=== PATIENT | female | born 1970 | race Caucasian/White ===

== ENCOUNTER 2021-07-05 06:04 | Day surgery (SDC) | payer OTHER ==
[2021-07-03 13:46] LABS: COVID AG,FIA SOURCE NASOPHARYNGEAL
[~2021-07-05] VITALS: Ht 154.9 cm; Wt 88.6 kg
[2021-07-05] MEDS ORDERED: SODIUM CHLORIDE 0.9% 1,000 ML ONE (06:25)
[2021-07-05] MEDS ORDERED: SODIUM CHLORIDE 0.9% 1,000 ML IV ONE (06:30)
[2021-07-05] MEDS ORDERED: FentaNYL CITRATE PF 100 MCG/2 ML VIAL ONE (07:46)
[2021-07-05] MEDS ORDERED: MIDAZOLAM HCL 5 MG/ML VIAL ONE (07:46)
[2021-07-05] MEDS ORDERED: MethylPREDNISolone SOD SUCC 125 MG/2 ML VIAL IVP ONE (09:00)
[2021-07-05] MEDS ORDERED: MethylPREDNISolone SOD SUCC 125 MG/2 ML VIAL ONE (09:21)
[2021-07-05] MEDS ORDERED: LORazepam 2 MG/ML VIAL ONE (09:38)
[2021-07-05] MEDS ORDERED: LORazepam 2 MG/ML VIAL IVP ONE (09:45)
[2021-07-05] MEDS ORDERED: OXYGEN THERAPY IH SCH (20:00)
== END 2021-07-05 12:05 | disposition home or self-care (01) ==
LOC: SURGERY 06:04
PROVIDERS: ATTEND Internal Medicine Critical Care Medicine
DX: J38.4 Edema of larynx (principal); B37.0 Candidal stomatitis; Z90.710 Acquired absence of both cervix and uterus; Z90.49 Acquired absence of other specified parts of digestive tract; G47.30 Sleep apnea, unspecified; Z98.890 Other specified postprocedural states; Z79.899 Other long term (current) drug therapy
CPT/HCPCS: 31623; 31624; 71045; 87015; 87070; 87101; 87205; 87206; 87220; 87426; 88108; 88312; C9803; J2060; J2250; J2930; J3010; J7030